=== PATIENT | female | born 2000 | race Caucasian/White ===

== ENCOUNTER 2022-02-26 11:00 | Emergency (ER) | payer MEDICAID ==
[~2022-02-26] VITALS: Ht 160 cm; Wt 79.4 kg
[2022-02-26 11:15] VITALS: BP_SYST 127
[2022-02-26] MEDS ORDERED: BENZ100C92 PO (14:29)
[2022-02-26 14:54] VITALS: BP_SYST 127
== END 2022-02-26 15:01 | disposition home or self-care (01) ==
LOC: SED 11:00
DX: J10.1 Influenza due to other identified influenza virus with other respiratory manifestations (principal); Z20.822 Contact with and (suspected) exposure to COVID-19
CPT/HCPCS: 36415; 99283

== ENCOUNTER 2023-02-16 17:10 | Emergency (ER) | payer MEDICAID ==
[~2023-02-16] VITALS: Ht 154.9 cm; Wt 72.6 kg
[~2023-02-16 17:10] MED LIST: BENZ100C92 PO
[2023-02-16 17:15] VITALS: BP_SYST 152; PULSE 115; RESP 18; TEMP 98.3; O2SAT 100
[2023-02-16 17:43] LABS: BASOPHILS % (AUTO) 0.1 % (0.0-2.0); EOSINOPHILS % (AUTO) 0.2 % (0.0-4.0); HEMATOCRIT 38.5 % (36-48); HEMOGLOBIN 12.3 g/dL (12.0-16.0); LYMPHOCYTES # (AUTO) 0.6 K/uL (1.0-5.5); LYMPHOCYTES % (AUTO) 5.9 % (20.5-51.5); MEAN CORPUSCULAR HEMOGLOBIN 24 pg (27-31); MEAN CORPUSCULAR HGB CONC 32 % (32-36); MEAN CORPUSCULAR VOLUME 76 fL (79.0-98.0); MONOCYTES # (AUTO) 0.5 K/uL (0.0-1.0); MONOCYTES % (AUTO) 5.4 % (1.7-9.3); NEUTROPHILS # (AUTO) 8.7 K/uL (1.8-7.7); NEUTROPHILS % (AUTO) 88.4 % (40.0-70.0); PLATELET COUNT (AUTO) 357 K/uL (130-430); RED BLOOD CELL COUNT(AUTO) 5.06 MIL/uL (4.2-6.2); RED CELL DISTRIBUTION WIDTH 15.4 % (9.0-15.0); WHITE BLOOD COUNT (AUTO) 9.8 K/uL (4.8-10.8)
[2023-02-16 17:54] LABS: CALCIUM 9.1 mg/dL (8.4-11.0); CREATININE 1.04 mg/dL (0.55-1.30); POTASSIUM 3.5 mmol/L (3.5-5.1)
[2023-02-16 17:55] LABS: ANISOCYTOSIS 1+; HYPOCHROMASIA 1+
[2023-02-16 17:58] LABS: ALBUMIN 3.5 g/dL (3.4-4.8); BILIRUBIN,DIRECT 0.1 mg/dL (0.0-0.3); TOTAL BILIRUBIN 0.4 mg/dL (0.0-1.0); TOTAL PROTEIN, SERUM 8.1 g/dL (6.4-8.3)
[2023-02-16 19:04] LABS: BILIRUBIN,URINE NEGATIVE (NEGATIVE); BLOOD, URINE 3+ (NEGATIVE); CLARITY/URINE SL CLOUDY (CLEAR); COLOR,URINE YELLOW (YELLOW); GLUCOSE,URINE NEGATIVE (NEGATIVE); KETONES,URINE NEGATIVE (NEGATIVE); NITRITE, URINE NEGATIVE (NEGATIVE); PROTEIN URINE TRACE (NEGATIVE); UROBILINOGEN,URINE 0.2 (0.2-1.0)
[2023-02-16] MEDS ORDERED: ONDA-8 TL (19:06)
[2023-02-16 19:14] LABS: LEUKOCYTE ESTERASE ,URINE NEGATIVE (NEGATIVE)
[2023-02-16 19:16] LABS: BACTERIA,URINE RARE /HPF (None Seen); MUCUS,URINE None Seen /LPF (None Seen); RBC,URINE >100 /HPF (0-3); WBC,URINE 0-3 /HPF (0-3)
[2023-02-16 20:36] VITALS: BP_SYST 139; PULSE 98; RESP 20; TEMP 99.1; O2SAT 99
== END 2023-02-16 20:36 | disposition home or self-care (01) ==
LOC: SED 17:10
DX: A08.4 Viral intestinal infection, unspecified (principal); Z79.899 Other long term (current) drug therapy
CPT/HCPCS: 36415; 80048; 80076; 81000; 81001; 81015; 81025; 83690; 85025; 99283

== ENCOUNTER 2023-06-02 10:19 | Emergency (ER) | payer SELFPAY ==
[~2023-06-02] VITALS: Ht 157.5 cm; Wt 72.6 kg
[~2023-06-02 10:19] MED LIST changes: +ONDA-8 TL
[2023-06-02 10:28] VITALS: BP_SYST 134; PULSE 101; RESP 18; TEMP 97.8; O2SAT 97
[2023-06-02 10:31] VITALS: BP_SYST 134; PULSE 100; RESP 16; TEMP 97.2; O2SAT 98
[2023-06-02] MEDS: PROCHLORPERAZINE EDISYLATE 10 MG/2 ML VIAL IM ONE (11:13)
[2023-06-02] MEDS: KETOROLAC TROMETHAMINE 60 MG/2 ML VIAL IM ONE (11:17)
[2023-06-02 11:27] LABS: BILIRUBIN,URINE NEGATIVE (NEGATIVE); BLOOD, URINE 1+ (NEGATIVE); CLARITY/URINE SL CLOUDY (CLEAR); COLOR,URINE YELLOW (YELLOW); GLUCOSE,URINE NEGATIVE (NEGATIVE); KETONES,URINE 1+ (NEGATIVE); LEUKOCYTE ESTERASE ,URINE 2+ (NEGATIVE); NITRITE, URINE POSITIVE (NEGATIVE); PROTEIN URINE 1+ (NEGATIVE); UROBILINOGEN,URINE 0.2 (0.2-1.0)
[2023-06-02 11:41] LABS: BACTERIA,URINE MODERATE /HPF (None Seen); FINE GRANULAR CASTS,URINE 0-2 /LPF (None Seen); WBC,URINE 50-80 /HPF (0-3)
[2023-06-02] MEDS ORDERED: TRAM50TA2 PO (12:07)
[2023-06-02] MEDS ORDERED: NITR-85 PO (12:07)
== END 2023-06-02 10:50 | disposition home or self-care (01) ==
LOC: SED 10:19
DX: G43.909 Migraine, unspecified, not intractable, without status migrainosus (principal); N39.0 Urinary tract infection, site not specified
CPT/HCPCS: 99284; 81000; 81001; 87086; 96372; 81015; J1885; J0780; 87186